=== PATIENT | female | born 1935 | race Caucasian/White ===

== ENCOUNTER 2018-02-15 10:21 | Inpatient (IN) | payer OTHER ==
[~2018-02-15] VITALS: Ht 154.9 cm; Wt 70.1 kg
[~2018-02-15 10:21] MED LIST: CARDIZEM CD180 M1 PO; LIDODERM1 EACH TOP; PERCOCET 5-3251 EACH PO; TRIAMTERENE-HC1 EAC1 PO; TYLENOL325 M1 PO
--- NOTE | 2018-02-15 10:24 | ED GENERAL ADULT ---
History of Present Illness General Chief Complaint: Hip Injury Stated Complaint: BIBA FOR FALL; HIP INJURY Source: patient, family Exam Limitations: no limitations Vital Signs & Intake/Output Vital Signs & Intake/Output Vital Signs Date Time Temp Pulse Resp B/P B/P Pulse O2 O2 Flow FiO2 Mean Ox Delivery Rate 02/15 1508 97.6 80 20 168/81 97 Room Air 02/15 1304 98.4 72 18 142/88 98 Room Air 02/15 1027 Room Air 02/15 1025 98.2 84 20 158/71 98 Room Air Allergies Coded Allergies: Penicillins (HIVES 08/10/17) Sulfa (Sulfonamide Antibiotics) (UNKNOWN THINKS MAYBE RASH PER PT 08/10/17) lorazepam (PER PT "WENT OFF THE WALL" 08/10/17) Reconcile Medications Diltiazem HCl (Cardizem Cd) 180 MG CAP.ER.24H 1 CAP PO DAILY HTN (Reported) Triamterene/Hydrochlorothiazid (Triamterene-Hctz 37.5-25 MG Tb) 37.5 MG-25 MG TABLET 1 TAB PO DAILY BP (Reported) Triage Nurses Notes Reviewed? yes Onset: Abrupt Duration: hour(s): Timing: recent history HPI: 02/15/18 82-year-old female presents to the emergency department for right hip pain. She was getting dressed and tripped landing on her right side. She complains of right shoulder pain. She also has severe right hip pain. She denies abdominal pain, headache, neck pain, or other complaints. Past History Travel History Traveled to [place] past 21 day No Medical History Any Pertinent Medical History? 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 No Review of Systems Review of Systems Constitutional: Denies: fever. EENTM: Denies: visual changes. Respiratory: Denies: short of breath. Cardiovascular: Denies: chest pain. GI: Denies: abdominal pain. Genitourinary: Reports: no symptoms. Musculoskeletal: Reports: see HPI. Skin: Denies: rash. Neurological/Psychological: Denies: headache. Hematologic/Endocrine: Reports: no symptoms. Immunologic/Allergic: Reports: no symptoms. Physical Exam Physical Exam General Appearance: alert, awake, anxious, moderate distress Head: atraumatic, normal appearance Eyes: Bilateral: normal appearance, PERRL, EOMI. Ears, Nose, Throat: normal pharynx, normal ENT inspection Neck: normal inspection, supple Respiratory: normal breath sounds, chest non-tender, no respiratory distress Cardiovascular: regular rate/rhythm Peripheral Pulses: 4+ radial (R), 4+ tibialis posterior (R) Gastrointestinal: soft, non-tender Back: normal range of motion Extremities: tenderness (right hip) Neurologic/Psych: no motor/sensory deficits, awake, alert, oriented x 3 Skin: intact, normal color, warm/dry Core Measures ACS in differential dx? No CVA/TIA Diagnosis: No Sepsis Present: No Sepsis Focused Exam Completed? No Progress Differential Diagnoses I considered the following diagnoses in my evaluation of the patient: [Fracture, abdominal injury, chest injury, other occult trauma] Plan of Care: Orders Procedure Date/time Status CBC WITHOUT DIFFERENTIAL 02/17 0600 Active BASIC ELECTROLYTES PLUS BUN&CR 02/17 0600 Active Regular Diet 02/15 D Active Weight 02/15 1532 Active Teach/Educate 02/15 1532 Active Pain Treatment and Response 02/15 1532 Active Nutritional Intake, Monitor 02/15 1532 Active Isolation 02/15 1532 Active Patient Care Conference 02/15 1532 Active Add-on Test (ER Only) 02/15 1423 Active Pathway - chart 02/15 1328 Active Pathway - chart 02/15 1326 Active House Staff 02/15 1326 Active Admit to inpatient 02/15 1313 Active Patient Data 02/15 1313 Active Vital Signs 02/15 1313 Active Code Status 02/15 1313 Complete Code Status 02/15 1313 Active Streeter, Insertion/Removal/Asses 02/15 1248 Active CULTURE,URINE 02/15 1248 Active PARTIAL THROMBOPLASTIN TIME 02/15 1050 Complete PROTHROMBIN TIME 02/15 1050 Complete GLYCOSYLATED HGB 02/15 1050 Complete CREATINE PHOSPHOKINASE 02/15 1050 Complete COMPREHENSIVE METABOLIC PANEL 02/15 1043 Complete CBC WITHOUT DIFFERENTIAL 02/15 1043 Complete EKG 02/15 1043 Active TYPE & SCREEN (NOT X-MATCH) 02/15 1043 Complete PT Evaluate & Treat 02/15 UNK Active Lab Add-on Test 02/15 UNK Active VTE Mechanical Prophylaxis 02/15 UNK Active Intake & Output 02/15 UNK Active Streeter, Insertion/Removal/Asses 02/15 UNK Complete Activity/Ambulation 02/15 UNK Active Current Medications Sig/Sy Start time Last Medication Dose Stop Time Status Admin Cefazolin Sodium 2 GM IQ8 02/16 0000 AC (Kefzol) 02/16 0829 N/A 1 UNIT (No Carrier) Diltiazem HCl 180 MG DAILY 02/15 1600 AC (Cardizem CD) Dextrose/Sodium 1,000 ML Q13H 02/15 1500 AC 02/15 Chloride 1501 (D5W-1/2 Normal Saline 1000ML) Acetaminophen 650 MG Q6P PRN 02/15 1330 AC (Tylenol) Morphine Sulfate 2 MG Q4P PRN 02/15 1330 AC 02/15 (MORPHINE SULFATE) 1459 Oxycodone/ 1 TAB Q6P PRN 02/15 1330 AC Acetaminophen (Percocet) Laboratory Tests 02/15/18 1326: PT Cancelled, INR Cancelled, APTT Cancelled 02/15/18 1050: Anion Gap 13, Estimated GFR > 60, BUN/Creatinine Ratio 18.8, Glucose 156 H, Hemoglobin A1c 6.1 H, Calcium 9.7, Total Bilirubin 0.8, AST 31, ALT 25, Alkaline Phosphatase 110, Creatine Kinase 96, Total Protein 7.1, Albumin 4.2, Globulin 2.9, Albumin/Globulin Ratio 1.4, PT 10.5, INR 0.96, APTT 29, CBC w Diff NO MAN DIFF REQ, RBC 5.18, MCV 89.2, MCH 30.1, MCHC 33.8, RDW 14.2, MPV 8.8, Gran % 85.3 H, Lymphocytes % 9.1 L, Monocytes % 3.7, Eosinophils % 1.4, Basophils % 0.5, Absolute Granulocytes 6.7 H, Absolute Lymphocytes 0.7 L, Absolute Monocytes 0.3, Absolute Eosinophils 0.1, Absolute Basophils 0 Microbiology 02/15 1315 URINE ROUT: Urine Culture - RECD Initial ED EKG: NSR, RBBB, nonspecific ST T wave chg Prior EKG: unchanged Departure Departure Disposition: STILL A PATIENT Condition: Stable Clinical Impression Primary Impression: Hip fracture Referrals: Erasmo HELTON,[facility] Departure Forms: Customer Survey General Discharge Information Admission Note Spoke With: Josh Brewer MD Documentation of Exam: Documentation of any treatments & extenuating circumstances including Concerns Regarding Discharge (functional status, medication knowledge or non-compliance, living conditions, etc.) that warrant an admission rather than observation: [The patient needs medical admission for clearance and then operative care of her right intertrochanteric hip fracture] PATIENT: YUE VALERA PRESENT AGE: 82 PATIENT ACCOUNT NO: [id number] : 37 LOCATION: [facility] ORDERING PHYSICIAN: Ankit Roblero DO SERVICE DATE: 02/15/18 EXAM TYPE: RAD - XRY-AP PELVIS; XRY-HIP 2-3 VIEWS, RIGHT EXAMINATION: XR PELVIS XR HIP, RIGHT CLINICAL INFORMATION: Fall with pain. COMPARISON: CT of the abdomen and pelvis 08/10/2017. TECHNIQUE: AP view (2 images) of the pelvis is obtained. AP and crosstable lateral views of the right hip are obtained. FINDINGS: There is a comminuted intertrochanteric fracture of the right proximal femur with moderate varus angulation. There is also mild anterior displacement and posterior angulation. There is a mildly displaced lesser trochanter fragment. The left hip and sacroiliac joints are unremarkable. There are degenerative changes in the visualized lumbar spine. IMPRESSION: Comminuted intertrochanteric fracture of the right proximal femur with angulation and displacement as described above. DICTATED BY: Gwyn Rose MD DATE/TIME DICTATED:02/15/181215 FORESTRY FIRE AIDE:TIERA DATE/TIME TRANSCRIBED:02/15/181215 CONFIDENTIAL, DO NOT COPY WITHOUT APPROPRIATE AUTHORIZATION. <Electronically signed in Other Vendor System> SIGNED BY: Gwyn Rose MD 1222 Critical Care Note Critical Care Note Critical Care Time: 30-74 min
[2018-02-15 11:07] LABS: ABSOLUTE BASOPHIL COUNT 0 /CUMM (0.0-0.2); ABSOLUTE EOSINOPHIL COUNT 0.1 /CUMM (0.0-0.7); ABSOLUTE GRANULOCYTE CT 6.7 /CUMM (1.4-6.5); ABSOLUTE LYMPH COUNT 0.7 /CUMM (1.2-3.4); ABSOLUTE MONOCYTE COUNT 0.3 /CUMM (0.10-0.60); BASOPHIL % 0.5 % (0.0-2.0); EOSINOPHIL % 1.4 % (0-5); HEMATOCRIT 46.2 % (37-47); MEAN CORPUSCULAR HGB 30.1 PG (27.0-31.0); MEAN CORPUSCULAR HGB CONC 33.8 G/DL (33.0-37.0); MEAN CORPUSCULAR VOLUME 89.2 FL (81.0-99.0); MEAN PLATELET VOLUME 8.8 FL (7.4-10.4); PLATELET COUNT 283 /CUMM (130-400); RBC DISTRIBUTION WIDTH 14.2 % (11.5-14.5); RED BLOOD CELL CT 5.18 /CUMM (4.20-5.40); WHITE BLOOD CELL COUNT 7.9 /CUMM (4.8-10.8)
[2018-02-15 11:27] LABS: GRANULOCYTE % 85.3 % (42.2-75.2)
--- NOTE | 2018-02-15 12:22 | RADIOLOGY REPORT ---
EXAMINATION: XR PELVIS XR HIP, RIGHT CLINICAL INFORMATION: Fall with pain. COMPARISON: CT of the abdomen and pelvis 08/10/2017. TECHNIQUE: AP view (2 images) of the pelvis is obtained. AP and crosstable lateral views of the right hip are obtained. FINDINGS: There is a comminuted intertrochanteric fracture of the right proximal femur with moderate varus angulation. There is also mild anterior displacement and posterior angulation. There is a mildly displaced lesser trochanter fragment. The left hip and sacroiliac joints are unremarkable. There are degenerative changes in the visualized lumbar spine. IMPRESSION: Comminuted intertrochanteric fracture of the right proximal femur with angulation and displacement as described above.
--- NOTE | 2018-02-15 12:26 | RADIOLOGY REPORT ---
EXAMINATION: RIGHT SHOULDER. CHEST X-RAY. CLINICAL INFORMATION: Fall. Pain. COMPARISON: None TECHNIQUE: Right shoulder 2 views. Chest one view. FINDINGS: RIGHT SHOULDER: There is no visible acute fracture or dislocation right shoulder. There is periarticular spurring at glenohumeral joint. The soft tissues are normal. CHEST: Both lungs are well-expanded and clear of acute process. Heart size and pulmonary vascularity is normal. No gross bony abnormality seen. IMPRESSION: Unremarkable chest exam. There is no visible acute fracture or dislocation right shoulder.
--- NOTE | 2018-02-15 13:17 | History & Physical ---
Doris HELTON,[facility] 02/15/18 1316: General Information and HPI MD Statement: I have seen and personally examined YUE VALERA and documented this H&P. The patient is a 82 year old F who presented with a patient stated chief complaint of [right hip pain]. Source of Information: patient, family Exam Limitations: no limitations History of Present Illness: 82 yo F with PMH of hypertension, remote history of PE, cholecystectomy, colon cancer s/p colectomy and small bowel 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 She was brought to the ED by ambulance after having a fall. The patient states that earlier this morning, she got out of bed and was trying to put her sweatpants on. As she was sliding her leg into her pants, she lost her balance and landed on her right side. She denies any chest pain, dizziness, lightheadedness, palpitations or any other symptoms prior to the fall. She experienced severe pain after the fall. Tried to get up but was unable to do so even with the help of her after which he called the ambulance. She was on the ground for approximately 40mins. At baseline, she walks independently. No prior history of any falls. She is generally well compliant with her medications but did not take them this morning. Allergies/Medications Allergies: Coded Allergies: Penicillins (HIVES 08/10/17) Sulfa (Sulfonamide Antibiotics) (UNKNOWN THINKS MAYBE RASH PER PT 08/10/17) lorazepam (PER PT "WENT OFF THE WALL" 08/10/17) Home Med list Apixaban (Eliquis) 2.5 MG TABLET 1 TAB PO BID DVT Prophylaxis Diltiazem HCl (Cardizem Cd) 180 MG CAP.ER.24H 1 CAP PO DAILY HTN (Reported) Ergocalciferol (Vitamin D2) (Vitamin D2) 50,000 UNIT CAPSULE 1 CAP PO QW Supplement Triamterene/Hydrochlorothiazid (Triamterene-Hctz 37.5-25 MG Tb) 37.5 MG-25 MG TABLET 1 TAB PO DAILY BP (Reported) Past History Travel History Traveled to [place] past 21 day No Medical History Neurological: NONE EENT: NONE Cardiovascular: hypertension Respiratory: pulmonary embolism Gastrointestinal: SBO Hepatic: NONE Renal: NONE Musculoskeletal: NONE Psychiatric: NONE Endocrine: NONE Blood Disorders: NONE 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 EENTM: Reports: no symptoms. Cardiovascular: Denies: chest pain, palpitations. Respiratory: Denies: cough, short of breath. GI: Reports: no symptoms. Genitourinary: Reports: no symptoms. Musculoskeletal: Reports: joint pain. Skin: Reports: no symptoms. Neurological/Psychological: Reports: no symptoms. Hematologic/Endocrine: Reports: no symptoms. Exam & Diagnostic Data Last 24 Hrs of Vital Signs/I&O Vital Signs Date Time Temp Pulse Resp B/P B/P Pulse O2 O2 Flow FiO2 Mean Ox Delivery Rate 02/15 1304 98.4 72 18 142/88 98 Room Air 02/15 1027 Room Air 02/15 1025 98.2 84 20 158/71 98 Room Air Intake & Output 02/15 1600 02/15 0800 02/15 0000 Intake Total Output Total 300 Balance -300 Output, Urine 300 Patient 150 lb Weight Weight Reported by Patient Measurement Method Physical Exam General Appearance Alert, Oriented X3, Cooperative, Mild Distress Skin No Rashes, No Breakdown Skin Temp/Moisture Exam: Warm/Dry Sepsis Skin Exam (color): Normal for Ethnicity HEENT Atraumatic Cardiovascular Normal S1, Normal S2, No Murmurs Lungs Normal Air Movement Abdomen Soft, No Tenderness Neurological Normal Speech Extremities No Edema Last 24 Hrs of Labs/Yonny: Laboratory Tests 02/15/18 1050: Anion Gap 13, Estimated GFR > 60, BUN/Creatinine Ratio 18.8, Glucose 156 H, Calcium 9.7, Total Bilirubin 0.8, AST 31, ALT 25, Alkaline Phosphatase 110, Total Protein 7.1, Albumin 4.2, Globulin 2.9, Albumin/Globulin Ratio 1.4, CBC w Diff NO MAN DIFF REQ, RBC 5.18, MCV 89.2, MCH 30.1, MCHC 33.8, RDW 14.2, MPV 8.8 , Gran % 85.3 H, Lymphocytes % 9.1 L, Monocytes % 3.7, Eosinophils % 1.4, Basophils % 0.5, Absolute Granulocytes 6.7 H, Absolute Lymphocytes 0.7 L, Absolute Monocytes 0.3, Absolute Eosinophils 0.1, Absolute Basophils 0 Microbiology 02/15 1315 URINE ROUT: Urine Culture - RECD Assessment/Plan Assessment: 82 yo F with PMH of hypertension, remote history of PE, cholecystectomy, colon cancer s/p colectomy and small bowel 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 She presents to the ED today after sustaining a fall. Extensive imaging in the ED showed Comminuted intertrochanteric fracture of the right proximal femur with angulation and displacement Assessment: 1. Right Comminuted Intertrochanteric Fracture 2. History of Hypertension 3. History of Pulmonary Embolism 4. History of colon cancer s/p resection Plan: * Admit patient to general medicine floor. * Keep NPO * Place Streeter * She has RCSI of 0.4%. She is stable from a medical standpoint for surgery. * Hold her antihypertensives. She can resume them from tomorrow. * PT eval in am * Diet: Regular. NPO for now * DVT Prophylaxis: ALPS for now, pharmacologic after surgery. * Code: Full Code As Ranked By This Provider Problem List: 1. Hip fracture Core Measures/Misc (05/22) Acute Coronary Syndrome ACS Diagnosis: No Congestive Heart Failure Congestive Heart Failure Diagnosis No Cerebrovascular Accident CVA/TIA Diagnosis: No VTE (View Protocol) VTE Risk Factors Age>40 No Mechanical VTE Prophylaxis d/t N/A MechProphylax Ordered No VTE Pharm Prophylaxis d/t NA PharmProphylax ordered Sepsis (View protocol) Sepsis Present: No If YES complete Sepsis Event Note If YES complete Sepsis Event Note Kailey Kimble MD 02/15/18 1526: Core Measures/Misc (05/22) Sepsis (View protocol) If YES complete Sepsis Event Note If YES complete Sepsis Event Note Attending MD Review Statement Attending Statement Attending MD Statement: examined this patient, discuss w/resident/PA/ASSOCIATE PROFESSOR OF SOCIOLOGY, agreed w/resident/PA/ASSOCIATE PROFESSOR OF SOCIOLOGY, discussed with family, reviewed EMR data (avail), discussed with nursing, discussed with case mgmt, reviewed images, amended to note Attending Assessment/Plan: 82 y/o F with pmh sig for PE ( not on any anticoag now), Lap cholecystectomy last year, colon cancer s/p colectomy and small bowel 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 She presented with a mechanical fall. She was trying to put her leg into her sweat pants when she lost her balance and fell. She said that it was a concrete floor with a carpet on it. She fell and could not move. She developed excruciating pain in her right hip. She called her from the next room and came and tried to help her but could not get her up. She was brought into the emergency room and found to have Comminuted intertrochanteric fracture of the right proximal femur with angulation and displacement. Patient has been seen by orthopedic and plan is to take her to operating room tonight. She is otherwise active. She denies any chest pain or any shortness of breath. She denies any palpitations, dizziness. She denies any complications or problems with previous surgeries or anesthesia. 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 Vital Signs Date Time Temp Pulse Resp B/P B/P Pulse O2 O2 Flow FiO2 Mean Ox Delivery Rate 02/15 1508 97.6 80 20 168/81 97 Room Air 02/15 1304 98.4 72 18 142/88 98 Room Air 02/15 1027 Room Air 02/15 1025 98.2 84 20 158/71 98 Room Air on exam; aox3, nad. cv; s1, s2, rrr, soft systolic murmur resp; Clear abd; soft, nt,bs+ ext; no edema Laboratory Tests 02/15 02/15 1326 1050 Chemistry Sodium (137 - 145 mmol/L) 141 Potassium (3.5 - 5.1 mmol/L) 3.4 L Chloride (98 - 107 mmol/L) 101 Carbon Dioxide (22 - 30 mmol/L) 28 Anion Gap (5 - 16) 13 BUN (7 - 17 mg/dL) 15 Creatinine (0.5 - 1.0 mg/dL) 0.8 Estimated GFR (>60 ml/min) > 60 BUN/Creatinine Ratio (7 - 25 %) 18.8 Glucose (65 - 99 mg/dL) 156 H Hemoglobin A1c (4.2 - 5.8 %) Pending Calcium (8.4 - 10.2 mg/dL) 9.7 Total Bilirubin (0.2 - 1.3 mg/dL) 0.8 AST (14 - 36 U/L) 31 ALT (9 - 52 U/L) 25 Alkaline Phosphatase (<127 U/L) 110 Total Protein (6.3 - 8.2 g/dL) 7.1 Albumin (3.5 - 5.0 g/dL) 4.2 Globulin (1.9 - 4.2 gm/dL) 2.9 Albumin/Globulin Ratio (1.1 - 2.2 %) 1.4 Coagulation PT (9.4 - 12.5 SEC) Cancelled 10.5 INR (0.90 - 1.19) Cancelled 0.96 APTT (25 - 37 SEC) Cancelled 29 Hematology CBC w Diff NO MAN DIFF REQ WBC (4.8 - 10.8 /CUMM) 7.9 RBC (4.20 - 5.40 /CUMM) 5.18 Hgb (12.0 - 16.0 G/DL) 15.6 Hct (37 - 47 %) 46.2 MCV (81.0 - 99.0 FL) 89.2 MCH (27.0 - 31.0 PG) 30.1 MCHC (33.0 - 37.0 G/DL) 33.8 RDW (11.5 - 14.5 %) 14.2 Plt Count (130 - 400 /CUMM) 283 MPV (7.4 - 10.4 FL) 8.8 Gran % (42.2 - 75.2 %) 85.3 H Lymphocytes % (20.5 - 51.1 %) 9.1 L Monocytes % (1.7 - 9.3 %) 3.7 Eosinophils % (0 - 5 %) 1.4 Basophils % (0.0 - 2.0 %) 0.5 Absolute Granulocytes (1.4 - 6.5 /CUMM) 6.7 H Absolute Lymphocytes (1.2 - 3.4 /CUMM) 0.7 L Absolute Monocytes (0.10 - 0.60 /CUMM) 0.3 Absolute Eosinophils (0.0 - 0.7 /CUMM) 0.1 Absolute Basophils (0.0 - 0.2 /CUMM) 0 EKG>.. NSR with RBBB which is old. All imaging reviewed. A/P; 82 y/o F with pmh sig for PE ( not on any anticoag now), Lap cholecystectomy last year, colon cancer s/p colectomy and small bowel resection complicated by enterocutaneous fistula in 2006 with a sphincterotomy for choledocholithiasis also performed that year admitted with a mechanical fall and right proximal femur comminuted intratrochanteric fracture. RCRI risk scoring is at 0.4% which puts her at a low risk. Patient does not need any further testing prior to surgery. Would recommend continuing her diltiazem to avoid any tachycardia. Can hold her diuretics for now. Patient will require adequate pain management. She will need physical therapy and incentive spirometry postoperatively. We will defer DVT prophylaxis to the orthopedic. She should be getting gently hydrated with IV fluids. Full code. Discussed with the family at length at bedside. Tristan HELTON,[facility] 02/15/18 1821: Core Measures/Misc (05/22) Sepsis (View protocol) If YES complete Sepsis Event Note If YES complete Sepsis Event Note Resident Review Statement Resident Statement: examined this patient, discussed with trestle mainternance laborer, agreed with trestle mainternance laborer Other Findings: This is an 82-year-old female past medical history significant for hypertension, colon cancer status post colectomy, small bowel resection and reanastomosis complicated by enterocutaneous fistula, choledocholithiasis status post sphincterotomy, who comes in for chief complaint of right lower extremity pain after fall. Patient was brought in by ambulance. She states that she was trying to put her pants on when she lost her balance and fell on her right side. After fall she experienced excruciating pain in her right leg and to a lesser degree in her right arm. She is unable to get up with aid of her and her son, at which point the ambulance was called. She was down for about 40 minutes. She denies any headache, nausea, vomiting, shortness of breath, chest pain, palpitations, syncope, loss of consciousness, or seizure. She has never fallen before, she walks independently. Assessment: This is an 82-year-old female past medical history significant for hypertension, remote history of provoked pulmonary embolus, cholecystectomy, colon cancer status post resection, reanastomosis, enterocutaneous fistula, who comes in for chief complaint of mechanical fall. CT in ED showed comminuted intertrochanteric fracture of the right proximal femur with angulation and displacement. Plan: 1. Right comminuted intertrochanteric fracture: Patient does have a history of hypertension. EKG shows old right bundle branch block. She denies any chest pain or palpitations. She has at least 6-8 metabolic equivalents and does not require aid for ambulation at baseline. I calculated RCR I index shows class I or 0.4% risk of adverse cardiac event intraoperatively. Patient is of relatively low risk candidate for this relatively low risk procedure, at this time we will proceed with surgical intervention. Surgery is on board. Plan is for ORIF later this afternoon. * Nothing by mouth * Place Streeter * Physical therapy * Alps for prophylaxis * check cpk 2. Hypertension: * Continue home diltiazem * Hold triamterene combo 3. History of pulmonary embolism: Patient has history of provoked pulmonary embolism setting of colon cancer, chemotherapy and prolonged immobilization. This was over 30 years ago. She is currently not on any anticoagulants. * Hold chemical prophylaxis at this time prior to surgery * Will start patient on anticoagulation postsurgically 4. Hypokalemia: * Repleted * Repeat in a.m. 5. Known RBBB: * Chronic and stable Full code ALPS prophylaxis Nothing by mouth
--- NOTE | 2018-02-15 13:52 | Cons- Orthopedic ---
General Information and HPI Consulting Request Date of Consult: 02/15/18 Requested By: Kailey Kimble MD Reason for Consult: Right hip fracture Source of Information: patient Exam Limitations: no limitations History of Present Illness: Ms. Cevallos is an 82-year-old female past medical history of hypertension and past surgical history of colon resection for colon CA present to [facility] emergency room as post-mechanical fall at home. Taste that she was trying to put her pants on sitting at the bedside L onto her right side. Denies dizziness chest pain blurred vision shortness of breath prior to fall is taken today demonstrate comminuted right intertrochanteric hip fracture. He states that prior to the fall to full community ambulator without assistive devices. Allergies/Medications Allergies: Coded Allergies: Penicillins (HIVES 08/10/17) Sulfa (Sulfonamide Antibiotics) (UNKNOWN THINKS MAYBE RASH PER PT 08/10/17) lorazepam (PER PT "WENT OFF THE WALL" 08/10/17) Home Med List: Diltiazem HCl (Cardizem Cd) 180 MG CAP.ER.24H 1 CAP PO DAILY HTN (Reported) Triamterene/Hydrochlorothiazid (Triamterene-Hctz 37.5-25 MG Tb) 37.5 MG-25 MG TABLET 1 TAB PO DAILY BP (Reported) Past History Medical History Neurological: NONE EENT: NONE Cardiovascular: hypertension Respiratory: pulmonary embolism Gastrointestinal: SBO Hepatic: NONE Renal: NONE Musculoskeletal: NONE Psychiatric: NONE Endocrine: NONE Blood Disorders: NONE Cancer(s): COLON CA 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 Surgical History Pertinent Surgical History: colon resection, , AIDEN Psychosocial History Services at Home: None Exam & Diagnostic Data Vital Signs and I&O Vital Signs Date Time Temp Pulse Resp B/P B/P Pulse O2 O2 Flow FiO2 Mean Ox Delivery Rate 02/15 1304 98.4 72 18 142/88 98 Room Air 02/15 1027 Room Air 02/15 1025 98.2 84 20 158/71 98 Room Air Intake & Output 02/15 1600 02/15 0800 02/15 0000 02/14 1600 02/14 0800 02/14 0000 Intake Total Output Total 300 Balance -300 Output, Urine 300 Patient 150 lb Weight Weight Reported by Patient Measurement Method Physical Exam General Appearance: no apparent distress, alert, awake, obese Head: atraumatic, normal appearance Eyes: Bilateral: PERRL. Respiratory: normal breath sounds, chest non-tender Cardiovascular: regular rate/rhythm Peripheral Pulses: 4+ tibialis posterior (R), 4+ tibialis posterior (L), 4+ dorsalis pedis (R), 4+ dorsalis pedis (L) Gastrointestinal: normal bowel sounds, soft, non-tender Extremities: normal inspection, no edema Neurologic/Psych: no motor/sensory deficits Last 24 Hours of Labs: Laboratory Tests 02/15 1050 Chemistry Sodium (137 - 145 mmol/L) 141 Potassium (3.5 - 5.1 mmol/L) 3.4 L Chloride (98 - 107 mmol/L) 101 Carbon Dioxide (22 - 30 mmol/L) 28 Anion Gap (5 - 16) 13 BUN (7 - 17 mg/dL) 15 Creatinine (0.5 - 1.0 mg/dL) 0.8 Estimated GFR (>60 ml/min) > 60 BUN/Creatinine Ratio (7 - 25 %) 18.8 Glucose (65 - 99 mg/dL) 156 H Calcium (8.4 - 10.2 mg/dL) 9.7 Total Bilirubin (0.2 - 1.3 mg/dL) 0.8 AST (14 - 36 U/L) 31 ALT (9 - 52 U/L) 25 Alkaline Phosphatase (<127 U/L) 110 Total Protein (6.3 - 8.2 g/dL) 7.1 Albumin (3.5 - 5.0 g/dL) 4.2 Globulin (1.9 - 4.2 gm/dL) 2.9 Albumin/Globulin Ratio (1.1 - 2.2 %) 1.4 Hematology CBC w Diff NO MAN DIFF REQ WBC (4.8 - 10.8 /CUMM) 7.9 RBC (4.20 - 5.40 /CUMM) 5.18 Hgb (12.0 - 16.0 G/DL) 15.6 Hct (37 - 47 %) 46.2 MCV (81.0 - 99.0 FL) 89.2 MCH (27.0 - 31.0 PG) 30.1 MCHC (33.0 - 37.0 G/DL) 33.8 RDW (11.5 - 14.5 %) 14.2 Plt Count (130 - 400 /CUMM) 283 MPV (7.4 - 10.4 FL) 8.8 Gran % (42.2 - 75.2 %) 85.3 H Lymphocytes % (20.5 - 51.1 %) 9.1 L Monocytes % (1.7 - 9.3 %) 3.7 Eosinophils % (0 - 5 %) 1.4 Basophils % (0.0 - 2.0 %) 0.5 Absolute Granulocytes (1.4 - 6.5 /CUMM) 6.7 H Absolute Lymphocytes (1.2 - 3.4 /CUMM) 0.7 L Absolute Monocytes (0.10 - 0.60 /CUMM) 0.3 Absolute Eosinophils (0.0 - 0.7 /CUMM) 0.1 Absolute Basophils (0.0 - 0.2 /CUMM) 0 Imaging Results: SERVICE DATE: 02/15/18 EXAM TYPE: RAD - XRY-AP PELVIS; XRY-HIP 2-3 VIEWS, RIGHT EXAMINATION: XR PELVIS XR HIP, RIGHT CLINICAL INFORMATION: Fall with pain. COMPARISON: CT of the abdomen and pelvis 08/10/2017. TECHNIQUE: AP view (2 images) of the pelvis is obtained. AP and crosstable lateral views of the right hip are obtained. FINDINGS: There is a comminuted intertrochanteric fracture of the right proximal femur with moderate varus angulation. There is also mild anterior displacement and posterior angulation. There is a mildly displaced lesser trochanter fragment. The left hip and sacroiliac joints are unremarkable. There are degenerative changes in the visualized lumbar spine. IMPRESSION: Comminuted intertrochanteric fracture of the right proximal femur with angulation and displacement as described above. DICTATED BY: Gwyn Rose MD DATE/TIME DICTATED:02/15/181215 BACK SEWER:TIERA DATE/TIME TRANSCRIBED:02/15/181215 Assessment/Plan Assessment/Plan Ms. Cevallos is an 10-year-old female who sustained a mechanical fall at home. X- rays taken today demonstrate a comminuted right intertrochanteric hip fracture. This case was reviewed and x-rays seen by Dr. Lemon days that the patient will need open reduction internal fixation of this right hip fracture and cleared by the medical team. Plan Nothing by mouth now Admit to medical service Await medical clearance Would like to take take patient to the operating room this afternoon The patient is in agreement Consult Acknowledgment - Thank you for your consult request.
[2018-02-15 14:51] LABS: PT 10.5 SEC (9.4-12.5); PTT 29 SEC (25-37)
[2018-02-15 15:08] VITALS: BP 168/81
--- NOTE | 2018-02-15 19:37 | Operative Report ---
Operative/Inv Procedure Report Surgery Date: 02/15/18 Name of Procedure: Right intramedullary rodding for intertrochanteric hip fracture. Pre-Operative Diagnosis: Right comminuted intertrochanteric hip fracture Post-Operative Diagnosis: Right comminuted intertrochanteric hip fracture Estimated Blood Loss: 50ml to 100ml Surgeon/Lieutenant Fire Fighter: Magdiel Lemon Anesthesia: laryngeal mask airway Operative/Procedure Note Note: The patient was brought to the operating room and given a general anesthetic while in her bed. She was also given 2 g Kefzol antibiotics. Appropriate timeouts were done prior to moving the patient to the fracture table. Right leg was signed was verified by the nursing staff and myself as the appropriate side for operation. The patient was then gently transferred to the fracture table she did have a block done by the anesthesia team. Close to an anatomic reduction was carried out there was some sagging of the fracture so during the procedure a Kennedy retractor had been placed behind the fracture elevating it to put the guidewire in and the nail. We also had a use compression on the nail to try to close the gap at the fracture site. An incision was made proximal to the greater trochanter the trochanter found guidewire placed down the canal reaming commenced and then a elza 125 short nail was placed down the canal. We then used a 95 mm lag screw up into the head and neck and verified at that was in the head on all views. Appropriate reaming was carried out prior to putting the lag screw and it was screwed into place. After completing this the distal locking screw was placed eighth 35 x 5.0 screw was used. Excellent fixation of the fracture was carried out we did use some compression on the device. Thorough irrigation was carried out at the end of the procedure wounds closed in a layered fashion and she was sent back to the recovery room in stable condition with no complications and a dictation by Dr. Lemon thank you
--- NOTE | 2018-02-15 20:07 | RADIOLOGY REPORT ---
EXAMINATION: INTRAOPERATIVE FLUOROSCOPY RIGHT HIP CLINICAL INFORMATION: Intraoperative fluoroscopic imaging open reduction internal fixation of an intertrochanteric fracture of the right hip. COMPARISON: Right hip radiographs 02/15/2018. TECHNIQUE: Intraoperative fluoroscopic imaging was provided during and open reduction internal fixation of a right intertrochanteric fracture. A total of 11 images were obtained. Total fluoroscopic time 40.7 seconds. FINDINGS: Multiple projections of the right hip demonstrate stages of an open reduction internal fixation of an intertrochanteric fracture of the right hip with an intramedullary nail and sliding hip screw. The initial images demonstrates the screw extending beyond the articular cortex of the femoral head. On subsequent images the screw is placed into a more suitable position. Near-anatomic alignment has been are established on the completion images. IMPRESSION: There are expected findings related to an open reduction internal fixation of an intertrochanteric fracture of the right hip with an intramedullary nail and a sliding hip screw.
--- NOTE | 2018-02-15 20:57 | PN- Orthopedic ---
Subjective Subjective: POC Sleeping comfortably, did not wake, no issues per rn. Objective Vital Signs and I&Os Vital Signs Date Time Temp Pulse Resp B/P B/P Pulse O2 O2 Flow FiO2 Mean Ox Delivery Rate 02/15 1508 97.6 80 20 168/81 97 Room Air 02/15 1304 98.4 72 18 142/88 98 Room Air 02/15 1027 Room Air 02/15 1025 98.2 84 20 158/71 98 Room Air Intake & Output 02/15 1600 02/15 0800 02/15 0000 02/14 1600 02/14 0800 02/14 0000 Intake Total Output Total 300 Balance -300 Output, Urine 300 Patient 149 lb Weight Weight Bed scale Measurement Method Physical Exam: GEN- NAD, sleeping comfortably Assessment/Plan Assessment/Plan A- POD0 sp r hip im rodding, stable. P- PT, WBAT prn pain meds diet as tolerated hl, dc mccabe per medical team ancef x2 doses postop eliquis 2.5 BID to start in am if ok with primary team dsg change POD2 dc planning medical care per primary team
[2018-02-15 21:00] VITALS: BP 128/80
[2018-02-15 22:39] VITALS: BP 120/70
[2018-02-16 00:30] VITALS: BP 132/70
[2018-02-16 02:30] VITALS: BP 124/72
--- NOTE | 2018-02-16 07:04 | PN- Housestaff ---
Doris HELTON,[facility] 02/16/18 0702: Subjective Follow-up For: Right Intertrochanteric Fracture Subjective: Patient seen and examined. States feeling better after the surgery and that her hip feels like she has muscle sore. Looks forward to go home than STR. No other complaints. Review of Systems Constitutional: Reports: no symptoms. Objective Last 24 Hrs of Vital Signs/I&O Vital Signs Date Time Temp Pulse Resp B/P B/P Pulse O2 O2 Flow FiO2 Mean Ox Delivery Rate 02/16 0230 97.8 76 20 124/72 97 Nasal 1.0L Cannula 02/16 0030 97.1 84 20 132/70 97 Nasal Cannula 02/16 0000 96 Nasal 1.0L Cannula 02/15 2239 97.7 84 20 120/70 96 Nasal Cannula 02/15 2100 96.6 87 18 128/80 98 Nasal 2.0L Cannula 02/15 1508 97.6 80 20 168/81 97 Room Air 02/15 1304 98.4 72 18 142/88 98 Room Air 02/15 1027 Room Air 02/15 1025 98.2 84 20 158/71 98 Room Air Intake & Output 02/16 1600 02/16 0800 02/16 0000 Intake Total 840 720 Output Total 400 200 Balance 440 520 Intake, IV 600 600 Intake, Oral 240 120 Output, Urine 400 200 Physical Exam General Appearance: Alert, Oriented X3, Cooperative, Mild Distress Skin: No Rashes, No Breakdown Skin Temp/Moisture Exam: Warm/Dry Sepsis Skin Exam (color): Normal for Ethnicity HEENT: Atraumatic Cardiovascular: Normal S1, Normal S2, No Murmurs Lungs: Normal Air Movement, anterior chest CTA Abdomen: Soft, No Tenderness Neurological: Normal Speech Extremities: No Edema Last 24 Hrs of Lab/Yonny Results Last 24 Hrs of Labs/Mics: Laboratory Tests 02/16/18 0938: Sodium Pending, Potassium Pending, Chloride Pending, Carbon Dioxide Pending, Anion Gap Pending, BUN Pending, Creatinine Pending, BUN/Creatinine Ratio Pending , 25-OH Vitamin D Total Pending, CBC w Diff Pending, WBC Pending, RBC Pending, Hgb Pending, Hct Pending, MCV Pending, MCH Pending, MCHC Pending, RDW Pending, Plt Count Pending, MPV Pending 02/15/18 1326: PT Cancelled, INR Cancelled, APTT Cancelled 02/15/18 1050: Anion Gap 13, Estimated GFR > 60, BUN/Creatinine Ratio 18.8, Glucose 156 H, Hemoglobin A1c 6.1 H, Calcium 9.7, Total Bilirubin 0.8, AST 31, ALT 25, Alkaline Phosphatase 110, Creatine Kinase 96, Total Protein 7.1, Albumin 4.2, Globulin 2.9, Albumin/Globulin Ratio 1.4, PT 10.5, INR 0.96, APTT 29, CBC w Diff NO MAN DIFF REQ, RBC 5.18, MCV 89.2, MCH 30.1, MCHC 33.8, RDW 14.2, MPV 8.8, Gran % 85.3 H, Lymphocytes % 9.1 L, Monocytes % 3.7, Eosinophils % 1.4, Basophils % 0.5, Absolute Granulocytes 6.7 H, Absolute Lymphocytes 0.7 L, Absolute Monocytes 0.3, Absolute Eosinophils 0.1, Absolute Basophils 0 Microbiology 02/15 1315 URINE ROUT: Urine Culture - RECD Assessment/Plan Assessment: 82 yo F with PMH of hypertension, remote history of PE, cholecystectomy, colon cancer s/p colectomy and small bowel 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 She presented to the ED after sustaining a fall. Extensive imaging in the ED showed Comminuted intertrochanteric fracture of the right proximal femur with angulation and displacement Assessment: 1. Right Comminuted Intertrochanteric Fracture 2. History of Hypertension 3. History of Pulmonary Embolism 4. History of colon cancer s/p resection 5. Vit D Deficiency Plan: * s/p ORIF day 2. * PT recommends STR. However, family wishes for home physical therapy. Will need to be discussed. * Streeter can be discontinued today. * Her labs show moderate Vit D deficiency. * Will start supplementation with Vit D2 50,000 IU once/week for 8 weeks. * Resume home meds * Diet: Regular. * DVT Prophylaxis: Eliquis * Code: Full Code Problem List: 1. Hip fracture Pain Ratin Pain Location: none Pain Goal: Remain pain free Pain Plan: none Tomorrow's Labs & Rationales: CBC José Manuel Reyes 02/16/18 1402: Attending MD Review Statement Attending Statement Attending MD Statement: examined this patient, discuss w/resident/PA/HYDROGENATION OPERATOR, agreed w/resident/PA/HYDROGENATION OPERATOR, discussed with family, reviewed EMR data (avail), discussed with nursing, discussed with case mgmt (right hip comminuted intertroc) Attending Assessment/Plan: Right hip comminuted intertrochanteric fracture-status post right intramedullary elza placement yesterday by orthopedics. Patient is doing okay postoperatively. We will check on vitamin D level. We will wait for physical therapy evaluation. Vitamin D deficiency-levels are very low so we'll start her on calcium and vitamin D. We will put her on 50,000 units weekly for 8 weeks and then do the routine supplementation after that. Discussed with patient as well as patient's family member at bedside the care plan.
--- NOTE | 2018-02-16 08:41 | PN- Orthopedic ---
Subjective Subjective: Pain controlled, currently taking Tylenol. No acute events overnight, she is in good spirits Objective Vital Signs and I&Os Vital Signs Date Time Temp Pulse Resp B/P B/P Pulse O2 O2 Flow FiO2 Mean Ox Delivery Rate 02/16 0230 97.8 76 20 124/72 97 Nasal 1.0L Cannula 02/16 0030 97.1 84 20 132/70 97 Nasal Cannula 02/16 0000 96 Nasal 1.0L Cannula 02/15 2239 97.7 84 20 120/70 96 Nasal Cannula 02/15 2100 96.6 87 18 128/80 98 Nasal 2.0L Cannula 02/15 1508 97.6 80 20 168/81 97 Room Air 02/15 1304 98.4 72 18 142/88 98 Room Air 02/15 1027 Room Air 02/15 1025 98.2 84 20 158/71 98 Room Air Intake & Output 02/16 1600 02/16 0800 02/16 0000 02/15 1600 02/15 0800 02/15 0000 Intake Total 840 720 Output Total 400 200 300 Balance 440 520 -300 Intake, IV 600 600 Intake, Oral 240 120 Output, Urine 400 200 300 Patient 149 lb Weight Weight Bed scale Measurement Method Physical Exam: Well-developed well-nourished no apparent distress. HEENT: Atraumatic, extraocular motion intact Neck: Supple, no lymphadenopathy Respiratory: No respiratory distress Extremities: No edema RIGHT lower extremity hip dressing in place, Dressing clean dry and intact Mild thigh swelling No signs of infection. No shortening or rotation Hip range of motion is limited and without unexpected pain Neurovascularly intact distally Bilateral calves are supple, nontender. Neuro: Alert and oriented x3 Psych: Mood affect normal, normal memory normal judgment. Skin: Warm and dry, no rash on exposed skin Results Last 48 Hours of Labs: Laboratory Tests 02/15 02/15 1326 1050 Chemistry Sodium (137 - 145 mmol/L) 141 Potassium (3.5 - 5.1 mmol/L) 3.4 L Chloride (98 - 107 mmol/L) 101 Carbon Dioxide (22 - 30 mmol/L) 28 Anion Gap (5 - 16) 13 BUN (7 - 17 mg/dL) 15 Creatinine (0.5 - 1.0 mg/dL) 0.8 Estimated GFR (>60 ml/min) > 60 BUN/Creatinine Ratio (7 - 25 %) 18.8 Glucose (65 - 99 mg/dL) 156 H Hemoglobin A1c (4.2 - 5.8 %) 6.1 H Calcium (8.4 - 10.2 mg/dL) 9.7 Total Bilirubin (0.2 - 1.3 mg/dL) 0.8 AST (14 - 36 U/L) 31 ALT (9 - 52 U/L) 25 Alkaline Phosphatase (<127 U/L) 110 Creatine Kinase (30 - 135 U/L) 96 Total Protein (6.3 - 8.2 g/dL) 7.1 Albumin (3.5 - 5.0 g/dL) 4.2 Globulin (1.9 - 4.2 gm/dL) 2.9 Albumin/Globulin Ratio (1.1 - 2.2 %) 1.4 Coagulation PT (9.4 - 12.5 SEC) Cancelled 10.5 INR (0.90 - 1.19) Cancelled 0.96 APTT (25 - 37 SEC) Cancelled 29 Hematology CBC w Diff NO MAN DIFF REQ WBC (4.8 - 10.8 /CUMM) 7.9 RBC (4.20 - 5.40 /CUMM) 5.18 Hgb (12.0 - 16.0 G/DL) 15.6 Hct (37 - 47 %) 46.2 MCV (81.0 - 99.0 FL) 89.2 MCH (27.0 - 31.0 PG) 30.1 MCHC (33.0 - 37.0 G/DL) 33.8 RDW (11.5 - 14.5 %) 14.2 Plt Count (130 - 400 /CUMM) 283 MPV (7.4 - 10.4 FL) 8.8 Gran % (42.2 - 75.2 %) 85.3 H Lymphocytes % (20.5 - 51.1 %) 9.1 L Monocytes % (1.7 - 9.3 %) 3.7 Eosinophils % (0 - 5 %) 1.4 Basophils % (0.0 - 2.0 %) 0.5 Absolute Granulocytes (1.4 - 6.5 /CUMM) 6.7 H Absolute Lymphocytes (1.2 - 3.4 /CUMM) 0.7 L Absolute Monocytes (0.10 - 0.60 /CUMM) 0.3 Absolute Eosinophils (0.0 - 0.7 /CUMM) 0.1 Absolute Basophils (0.0 - 0.2 /CUMM) 0 Assessment/Plan Assessment/Plan Postop day #1 status post right hip intramedullary rodding, stable. PT, WBAT prn pain meds diet as tolerated ancef x2 doses postop eliquis 2.5 BID to start in am dsg change POD2 medical care per primary team will follow Core Measures Venous Thromboembolism VTE Risk Factors Age>40 No Mechanical VTE Prophylaxis d/t N/A MechProphylax Ordered No VTE Pharm Prophylaxis d/t NA PharmProphylax ordered
[2018-02-16] MEDS ORDERED: ELIQUIS2.5 M1 PO (10:25)
--- NOTE | 2018-02-16 10:26 | Patient Discharge Instructions ---
Discharge Instructions General Discharge Information You were seen/treated for: Hip Fracture You had these procedures: Right intramedullary rodding for intertrochanteric hip fracture Special Instructions: Please follow up with your PCP within one week of discharge. Please follow up with your Orthopedic surgeon Dr Lemon within 1-2 weeks of discharge. Please continue to take eliquis and Vit D + calcium. Follow up with PCP regarding osteoporosis work up and treatment Please have an MRI of your right shoulder as outpatient. Diet Continue normal diet: Yes Activity Full Activity/No Limits: No Activity Self Limited: Yes Acute Coronary Syndrome Inclusion Criteria At DC or during hospital stay patient has or had the following: ACS DIAGNOSIS No Discharge Core Measures Meds if any: Prescribed or Continued at Discharge Meds if any: NOT Prescribed or Continued at Discharge Congestive Heart Failure Inclusion Criteria At DC or during hospital stay patient has or had the following: CHF DIAGNOSIS No Discharge Core Measures Meds if any: Prescribed or Continued at Discharge Meds if any: NOT Prescribed or Continued at Discharge Cerebrovascular accident Inclusion Criteria At DC or during hospital stay patient has or had the following: CVA/TIA Diagnosis No Discharge Core Measures Meds if any: Prescribed or Continued at Discharge Meds if any: NOT Prescribed or Continued at Discharge Venous thromboembolism Inclusion Criteria VTE Diagnosis No VTE Type NONE VTE Confirmed by (Test) NONE Discharge Core Measures - Per Current guidelines, there needs to be overlap - treatment for the first 5 days of Warfarin therapy. - If discharged on Warfarin prior to 5 days of - overlap therapy, the patient will need to be - assessed for post discharge needs including - *Post discharge parental anticoagulation - *Warfarin and/or parental anticoagulation education - *Follow up date to check INR post discharge At least 5 days overlap therapy as Inpatient No Meds if any: Prescribed or Continued at Discharge Note: Overlap Therapy is Warfarin and Anticoagulant Meds if any: NOT Prescribed or Continued at Discharge
[2018-02-16 10:55] LABS: ABSOLUTE BASOPHIL COUNT 0 /CUMM (0.0-0.2); ABSOLUTE EOSINOPHIL COUNT 0 /CUMM (0.0-0.7); ABSOLUTE GRANULOCYTE CT 8.5 /CUMM (1.4-6.5); ABSOLUTE LYMPH COUNT 0.6 /CUMM (1.2-3.4); EOSINOPHIL % 0 % (0-5); MEAN PLATELET VOLUME 9.2 FL (7.4-10.4)
[2018-02-16 11:04] LABS: ABSOLUTE MONOCYTE COUNT 0.6 /CUMM (0.10-0.60); BASOPHIL % 0.1 % (0.0-2.0); MEAN CORPUSCULAR HGB CONC 34.1 G/DL (33.0-37.0); MEAN CORPUSCULAR VOLUME 91.1 FL (81.0-99.0); PLATELET COUNT 257 /CUMM (130-400); RBC DISTRIBUTION WIDTH 14.1 % (11.5-14.5); WHITE BLOOD CELL COUNT 9.8 /CUMM (4.8-10.8)
[2018-02-16 11:08] LABS: HEMATOCRIT 34.8 % (37-47); RED BLOOD CELL CT 3.83 /CUMM (4.20-5.40)
[2018-02-16 11:19] LABS: GRANULOCYTE % 87.4 % (42.2-75.2)
--- NOTE | 2018-02-16 13:43 | Discharge Summary ---
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 CT in ED showed comminuted intertrochanteric fracture of the right proximal femur with angulation and displacement. She was down for 40 min on the ground before help arrived. In ED she went in for successful ORIF that same day. Post-op she was recommended STR for rehab. Given broken bone from standing height pt meets criteria for osteoporosis. * Vit D low so continue 09209 IU Vit D * Continue Physical therapy * Continue Diltiazem * Continue Triamtrene combo * Started on Eliquis for post-op AC * Pls follow up with treatment of likely osteoporosis in this pt. Consider DEXA or further supplementaiton. * Pt had fall and hit her r. shoulder. XRY was WNL. However, she would benefit from an MRI done on the out patient basis to evaluate for soft tissue injury. Script has been provided. Allergies: Coded Allergies: Penicillins (HIVES 08/10/17) Sulfa (Sulfonamide Antibiotics) (UNKNOWN THINKS MAYBE RASH PER PT 08/10/17) lorazepam (PER PT "WENT OFF THE WALL" 08/10/17) Significant Procedures: ORIF Pertinent Lab Results: Laboratory Tests 02/17 02/16 0650 0938 Chemistry Sodium (137 - 145 mmol/L) 138 Potassium (3.5 - 5.1 mmol/L) 3.8 Chloride (98 - 107 mmol/L) 101 Carbon Dioxide (22 - 30 mmol/L) 25 Anion Gap (5 - 16) 12 BUN (7 - 17 mg/dL) 12 Creatinine (0.5 - 1.0 mg/dL) 0.7 Estimated GFR (>60 ml/min) > 60 BUN/Creatinine Ratio (7 - 25 %) 17.1 25-OH Vitamin D Total (30 - 100 ng/ml) 14.8 L Hematology CBC w Diff NO MAN DIFF REQ NO MAN DIFF REQ WBC (4.8 - 10.8 /CUMM) 7.6 9.8 RBC (4.20 - 5.40 /CUMM) 3.46 L 3.83 L Hgb (12.0 - 16.0 G/DL) 10.8 L 11.9 L Hct (37 - 47 %) 31.1 L 34.8 L MCV (81.0 - 99.0 FL) 90.0 91.1 MCH (27.0 - 31.0 PG) 31.1 H 31.0 MCHC (33.0 - 37.0 G/DL) 34.6 34.1 RDW (11.5 - 14.5 %) 14.1 14.1 Plt Count (130 - 400 /CUMM) 228 257 MPV (7.4 - 10.4 FL) 8.9 9.2 Gran % (42.2 - 75.2 %) 78.1 H 87.4 H Lymphocytes % (20.5 - 51.1 %) 13.0 L 6.5 L Monocytes % (1.7 - 9.3 %) 8.1 6.0 Eosinophils % (0 - 5 %) 0.7 0 Basophils % (0.0 - 2.0 %) 0.1 0.1 Absolute Granulocytes (1.4 - 6.5 /CUMM) 5.9 8.5 H Absolute Lymphocytes (1.2 - 3.4 /CUMM) 1.0 L 0.6 L Absolute Monocytes (0.10 - 0.60 /CUMM) 0.6 0.6 Absolute Eosinophils (0.0 - 0.7 /CUMM) 0.1 0 Absolute Basophils (0.0 - 0.2 /CUMM) 0 0 02/15 02/15 1326 1050 Chemistry Sodium (137 - 145 mmol/L) 141 Potassium (3.5 - 5.1 mmol/L) 3.4 L Chloride (98 - 107 mmol/L) 101 Carbon Dioxide (22 - 30 mmol/L) 28 Anion Gap (5 - 16) 13 BUN (7 - 17 mg/dL) 15 Creatinine (0.5 - 1.0 mg/dL) 0.8 Estimated GFR (>60 ml/min) > 60 BUN/Creatinine Ratio (7 - 25 %) 18.8 Glucose (65 - 99 mg/dL) 156 H Hemoglobin A1c (4.2 - 5.8 %) 6.1 H Calcium (8.4 - 10.2 mg/dL) 9.7 Total Bilirubin (0.2 - 1.3 mg/dL) 0.8 AST (14 - 36 U/L) 31 ALT (9 - 52 U/L) 25 Alkaline Phosphatase (<127 U/L) 110 Creatine Kinase (30 - 135 U/L) 96 Total Protein (6.3 - 8.2 g/dL) 7.1 Albumin (3.5 - 5.0 g/dL) 4.2 Globulin (1.9 - 4.2 gm/dL) 2.9 Albumin/Globulin Ratio (1.1 - 2.2 %) 1.4 Coagulation PT (9.4 - 12.5 SEC) Cancelled 10.5 INR (0.90 - 1.19) Cancelled 0.96 APTT (25 - 37 SEC) Cancelled 29 Hematology CBC w Diff NO MAN DIFF REQ WBC (4.8 - 10.8 /CUMM) 7.9 RBC (4.20 - 5.40 /CUMM) 5.18 Hgb (12.0 - 16.0 G/DL) 15.6 Hct (37 - 47 %) 46.2 MCV (81.0 - 99.0 FL) 89.2 MCH (27.0 - 31.0 PG) 30.1 MCHC (33.0 - 37.0 G/DL) 33.8 RDW (11.5 - 14.5 %) 14.2 Plt Count (130 - 400 /CUMM) 283 MPV (7.4 - 10.4 FL) 8.8 Gran % (42.2 - 75.2 %) 85.3 H Lymphocytes % (20.5 - 51.1 %) 9.1 L Monocytes % (1.7 - 9.3 %) 3.7 Eosinophils % (0 - 5 %) 1.4 Basophils % (0.0 - 2.0 %) 0.5 Absolute Granulocytes (1.4 - 6.5 /CUMM) 6.7 H Absolute Lymphocytes (1.2 - 3.4 /CUMM) 0.7 L Absolute Monocytes (0.10 - 0.60 /CUMM) 0.3 Absolute Eosinophils (0.0 - 0.7 /CUMM) 0.1 Absolute Basophils (0.0 - 0.2 /CUMM) 0 Disposition Summary Disposition Principal Diagnosis: MECHANICAL FALL AND FRACTURE Additional Diagnosis: HTN Discharge Disposition: SNF Discharge Instructions General Discharge Information Code Status: Full Code Patient's Diet: TOLERATED Patient's Activity: WBAT Follow-Up Instructions/Appts: SEE ABOVE Medications at Discharge Discharge Medications: Continue taking these medications: Triamterene/Hydrochlorothiazid (Triamterene-Hctz 37.5-25 MG Tb) 37.5 MG-25 MG TABLET 1 Tablet ORAL DAILY Qty = 90 Comments: Last Taken: 08/12/17 Time: 1030AM Diltiazem HCl (Cardizem Cd) 180 MG CAP.ER.24H 1 Capsule ORAL DAILY Comments: Last Taken: 08/12/17 Time: 1030AM Start taking the following new medications: Calcium Carbonate (Oyster Shell Calcium) 500 MG CALCIUM (1,250 MG) TABLET 1 Tablet ORAL TWICE DAILY Qty = 30 No Refills Apixaban (Eliquis) 2.5 MG TABLET 1 Tablet ORAL TWICE DAILY Qty = 60 No Refills Ergocalciferol (Vitamin D2) (Vitamin D2) 50,000 UNIT CAPSULE 1 Capsule ORAL Once a Week Qty = 7 No Refills Acetaminophen (Tylenol Extra Strength) 500 MG TABLET 2 Tablet ORAL EVERY 8 HOURS NEEDED as needed for Pain Qty = 60 No Refills Ferrous Sulfate (Ferrous Sulfate) 325 MG (65 MG IRON) TABLET 1 Tablet ORAL DAILY Qty = 30 No Refills Copies To: Cassia HELTON,Missael Coon
[2018-02-16 14:26] VITALS: BP 142/64
[2018-02-16] MEDS ORDERED: VITAMIN D250000 UNIT PO (15:00)
[2018-02-16 22:16] VITALS: BP 110/60
[2018-02-17 06:54] VITALS: BP 120/64
--- NOTE | 2018-02-17 07:10 | PN- Housestaff ---
Doris HELTON,[facility] 02/17/18 0710: Subjective Follow-up For: Right Intertrochanteric Fracture Subjective: Patient seen and examined. She feels grumpy. Her right shoulder has been bothering her as she feels limited movement. She does not like medications. No complaints in particular. Review of Systems Constitutional: Reports: no symptoms. Objective Last 24 Hrs of Vital Signs/I&O Vital Signs Date Time Temp Pulse Resp B/P B/P Pulse O2 O2 Flow FiO2 Mean Ox Delivery Rate 02/17 0654 98.4 78 20 120/64 94 Room Air 02/17 0000 Room Air 02/16 2216 98.2 82 20 110/60 93 Nasal Cannula 02/16 1426 98.5 93 20 142/64 97 Intake & Output 02/17 0800 02/17 0000 02/16 1600 Intake Total 240 950 Output Total 750 701 Balance -510 249 Intake, IV 75 Intake, Oral 240 875 Number 0 1 Bowel Movements Output, Stool 1 Output, Urine 750 700 Physical Exam General Appearance: Alert, Oriented X3, Cooperative, Mild Distress Skin: No Rashes, No Breakdown Skin Temp/Moisture Exam: Warm/Dry Sepsis Skin Exam (color): Normal for Ethnicity HEENT: Atraumatic Cardiovascular: Normal S1, Normal S2, No Murmurs Lungs: Normal Air Movement, mild crackles on left base Abdomen: Soft, No Tenderness Neurological: Normal Speech Extremities: No Edema, impaired ROM of right shoulder Last 24 Hrs of Lab/Yonny Results Last 24 Hrs of Labs/Mics: Laboratory Tests 02/17/18 0650: CBC w Diff NO MAN DIFF REQ, RBC 3.46 L, MCV 90.0, MCH 31.1 H, MCHC 34.6, RDW 14.1, MPV 8.9, Gran % 78.1 H, Lymphocytes % 13.0 L, Monocytes % 8.1, Eosinophils % 0.7, Basophils % 0.1, Absolute Granulocytes 5.9, Absolute Lymphocytes 1.0 L, Absolute Monocytes 0.6, Absolute Eosinophils 0.1, Absolute Basophils 0 02/16/18 0938: Anion Gap 12, Estimated GFR > 60, BUN/Creatinine Ratio 17.1, Iron Pending, TIBC Pending, Ferritin Pending, 25-OH Vitamin D Total 14.8 L, CBC w Diff NO MAN DIFF REQ, RBC 3.83 L, MCV 91.1, MCH 31.0, MCHC 34.1, RDW 14.1, MPV 9.2, Gran % 87.4 H, Lymphocytes % 6.5 L, Monocytes % 6.0, Eosinophils % 0, Basophils % 0.1, Absolute Granulocytes 8.5 H, Absolute Lymphocytes 0.6 L, Absolute Monocytes 0.6, Absolute Eosinophils 0, Absolute Basophils 0 Assessment/Plan Assessment: 82 yo F with PMH of hypertension, remote history of PE, cholecystectomy, colon cancer s/p colectomy and small bowel 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 She presented to the ED after sustaining a fall. Extensive imaging in the ED showed Comminuted intertrochanteric fracture of the right proximal femur with angulation and displacement Assessment: 1. Right Comminuted Intertrochanteric Fracture 2. History of Hypertension 3. History of Pulmonary Embolism 4. History of colon cancer s/p resection 5. Vit D Deficiency Plan: * s/p ORIF day 3. * PT recommends STR. * OT for upper arm. * Streeter can be discontinued today. * Increase tylenol to 1g q8 for pain control. Diclofenac cream for shoulder application. * Her labs show moderate Vit D deficiency. * Continue supplementation with Vit D2 50,000 IU once/week for 8 weeks. . * Calcium Carbonate 500mg BID * Stable to be discharged today to STR. * Continue home meds * Diet: Regular. * DVT Prophylaxis: Eliquis * Code: Full Code Problem List: 1. Hip fracture Pain Ratin Pain Location: none Pain Goal: Remain pain free Pain Plan: none Tomorrow's Labs & Rationales: none José Manuel Reyes 02/17/18 1312: Attending MD Review Statement Attending Statement Attending MD Statement: examined this patient, discuss w/resident/PA/MEDICAL EQUIPMENT REPAIR TECHNICIAN, agreed w/resident/PA/MEDICAL EQUIPMENT REPAIR TECHNICIAN, discussed with family, reviewed EMR data (avail), discussed with nursing, discussed with case mgmt Attending Assessment/Plan: Right hip comminuted intertrochanteric fracture-status post right intramedullary elza placement by orthopedics. Patient is doing okay postoperatively. PT eval done and recommending STR. Case managment workign on placement. Vitamin D deficiency-cont on calcium and vitamin D. Cont on 50,000 units weekly for 8 weeks and then do the routine supplementation after that. Discussed with patient as well as patient's family member at bedside the care plan. See dc summary for more details.
[2018-02-17 07:47] LABS: ABSOLUTE BASOPHIL COUNT 0 /CUMM (0.0-0.2); ABSOLUTE EOSINOPHIL COUNT 0.1 /CUMM (0.0-0.7); ABSOLUTE GRANULOCYTE CT 5.9 /CUMM (1.4-6.5); ABSOLUTE MONOCYTE COUNT 0.6 /CUMM (0.10-0.60); BASOPHIL % 0.1 % (0.0-2.0); EOSINOPHIL % 0.7 % (0-5); GRANULOCYTE % 78.1 % (42.2-75.2); HEMATOCRIT 31.1 % (37-47); MEAN CORPUSCULAR HGB 31.1 PG (27.0-31.0); MEAN CORPUSCULAR HGB CONC 34.6 G/DL (33.0-37.0); MEAN PLATELET VOLUME 8.9 FL (7.4-10.4); PLATELET COUNT 228 /CUMM (130-400); RBC DISTRIBUTION WIDTH 14.1 % (11.5-14.5); RED BLOOD CELL CT 3.46 /CUMM (4.20-5.40); WHITE BLOOD CELL COUNT 7.6 /CUMM (4.8-10.8)
--- NOTE | 2018-02-17 07:51 | PN- Orthopedic ---
Kwame Tomlin 02/17/18 0750: Subjective Subjective: Patient reports trouble sleeping last night. She reports throbbing leg pain which is well controlled with Tylenol. She reports shoulder pain, which shes had since her fall. She is ambulating with PT. She states she does not want her mccabe removed bc she does not feel strong enough to ambulate to the commode Objective Vital Signs and I&Os Vital Signs Date Time Temp Pulse Resp B/P B/P Pulse O2 O2 Flow FiO2 Mean Ox Delivery Rate 02/17 0654 98.4 78 20 120/64 94 Room Air 02/17 0000 Room Air 02/16 2216 98.2 82 20 110/60 93 Nasal Cannula 02/16 1426 98.5 93 20 142/64 97 Intake & Output 02/17 1600 02/17 0800 02/17 0000 02/16 1600 02/16 0800 02/16 0000 Intake Total 240 950 840 720 Output Total 650 750 701 400 200 Balance -650 -510 249 440 520 Intake, IV 75 600 600 Intake, Oral 240 875 240 120 Number 0 0 1 Bowel Movements Output, Stool 1 Output, Urine 650 750 700 400 200 Patient 155 lb Weight Weight Bed scale Measurement Method Physical Exam: Gen - resting comfortably in nad Ext - Right hip dressing in place, c/d/i, incision x 3 closed with percy healing well with no signs of infection, mild swelling with surrounding ecchymosis and brisk bleeding from superior incision, appropriately tender azalea- incisionally, nvi, alps in place, no edema or calf tenderness. Right should with decreased ROM Assessment/Plan Assessment/Plan 82 F POD 2 s/p right hip intramedullary rodding, stable with right shoulder weakness concerning for rotator cuff tear PT, WBAT Pain meds prn Eliquis 2.5 BID x 4 weeks Cont dry daily dressing changes ?MRI of right shoulder All other medical management per primary team Will d/w Dr. Lemon Core Measures Venous Thromboembolism VTE Risk Factors Age>40 No Mechanical VTE Prophylaxis d/t N/A MechProphylax Ordered No VTE Pharm Prophylaxis d/t NA PharmProphylax ordered JeniferDivina 02/17/18 0944: Assessment/Plan Assessment/Plan Discussed with Dr. Lemon, the following recommendations have been made: MRI shoulder to r/o Rotator Cuff Tear, Dr. Lemon will follow this up in office when patient is seen as outpatient Anticoagulation for dvt ppx for 6 weeks post op DC eliot now.
[2018-02-17] MEDS ORDERED: TYLENOL EXTRA500 M2 PO (08:31)
[2018-02-17] MEDS ORDERED: CALCIUM OYS SH1 EACH PO (08:47)
[2018-02-17] MEDS ORDERED: VITAMIN D250000 UNIT PO (10:09)
[2018-02-17] MEDS ORDERED: OYSTER SHELL C500 M2 PO (10:10)
[2018-02-17] MEDS ORDERED: FERROUS SULFAT325 M3 PO (13:23)
[2018-02-17 14:03] VITALS: BP 116/60
[2018-02-17 15:29] VITALS: BP 116/60
== END 2018-02-17 16:43 | DRG 482 ==
LOC: ERH 10:21 → 2NA 13:13 → ERHI 13:13 → 2NA 13:13 → ENRESERV 13:34 → ENTRNSPT 14:25 → EDTRNSPT 14:32 → EDTRNSPTSTS 14:32 → 2NA 14:37 → CMPTRNSPT 14:52 → ENTRNSPT 20:27 → EDTRNSPTSTS 20:29 → EDTRNSPT 20:29 → CMPTRNSPT 20:51 → ENPENDDIS 02-17 14:40 → 2NA 02-17 16:43
PROVIDERS: Emergency Medicine; Internal Medicine; Student in an Organized Health Care Education/Training Program
PROC: 0QS606Z Reposition Right Upper Femur with Intramedullary Internal Fixation Device, Open Approach (ICD-10-PCS; principal; 2018-02-15)
PROC: 3E0T3BZ Introduction of Anesthetic Agent into Peripheral Nerves and Plexi, Percutaneous Approach (ICD-10-PCS; 2018-02-15)
DX: S72.141A Displaced intertrochanteric fracture of right femur, initial encounter for closed fracture (principal); I45.10 Unspecified right bundle-branch block; I10 Essential (primary) hypertension; E87.6 Hypokalemia; S46.011A Strain of muscle(s) and tendon(s) of the rotator cuff of right shoulder, initial encounter; W01.0XXA Fall on same level from slipping, tripping and stumbling without subsequent striking against object, initial encounter; Y92.003 Bedroom of unspecified non-institutional (private) residence as the place of occurrence of the external cause; E55.9 Vitamin D deficiency, unspecified; Z86.711 Personal history of pulmonary embolism; Z88.8 Allergy status to other drugs, medicaments and biological substances; Z90.49 Acquired absence of other specified parts of digestive tract; Z85.038 Personal history of other malignant neoplasm of large intestine; Z88.0 Allergy status to penicillin; Z88.2 Allergy status to sulfonamides
CPT/HCPCS: 2NASP; 36415; 36592; 71045; 72170; 73030-RT; 73502-RT; 82436; 87086; 93005; 93010; 96374; 96375; 97110-GO; 97116-GO; 97161-GP; 97165-GO; 97530-GO; J0131; J0690; J7042